=== PATIENT | male | born 1965 | race Caucasian/White ===

== ENCOUNTER 2019-02-05 14:13 | Emergency (ER) | payer OTHER ==
[2019-02-05] MEDS ORDERED: Acetaminophen/oxyCODONE 325-5 MG Tab PO ONE (14:14)
[2019-02-05] MEDS ORDERED: Sodium Chloride 0.9% 1,000 ML IV ONE (15:25)
[2019-02-05] MEDS ORDERED: HYDROmorphone 1 MG/ML Syringe IVPUSH ONE ×2 (15:25→16:01)
[2019-02-05] MEDS ORDERED: diphenhydrAMINE 50 MG/ML SDV IVPUSH ONE (16:11)
[2019-02-05] MEDS ORDERED: Acetaminophen/oxyCODONE 325-5 MG Tab ONE (16:59)
--- NOTE | 2019-02-05 17:03 | EDM.PDOC ---
Scribed by Anamaria Ashby 02/05/19 1533 for João House PA ED HPI GENERAL MEDICAL PROBLEM - General Chief Complaint: Abdominal Pain Stated Complaint: TORSO PAIN Time Seen by Provider: 02/05/19 15:19 Source of Information: Reports: Patient, RN, RN Notes Reviewed History Limitations: Reports: No Limitations - History of Present Illness INITIAL COMMENTS - FREE TEXT/NARRATIVE: This 53 yo male patient reports to the ED with increased abdominal and lower back pain. 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 The patient and his bobby came to [place] for a quick fishing trip prior to his surgery. The patient has noticed increased abdominal pain over the past 24 hours and is out of his pain medications. The patient reports he was given a script for hydrocodone, oxycodone and lorazepam, but these medications have not "touched" the pain. Onset: Today Duration: Constant Location: Reports: Abdomen Quality: Reports: Ache, Sharp Severity: Moderate Improves with: Reports: None Worsens with: Reports: None Context: Reports: Other Associated Symptoms: Reports: No Other Symptoms Right Lower Abdomen Pain Score (Numeric/FACES): 8 - Related Data Allergies Allergy/AdvReac Type Severity Reaction Status Date / Time No Known Allergies Allergy Verified 02/05/19 15:18 ED ROS GENERAL - Review of Systems Review Of Systems: ROS reveals no pertinent complaints other than HPI. ED EXAM, GI/ABD - Physical Exam Exam: See Below Exam Limited By: No Limitations General Appearance: Alert, WD/WN, Severe Distress Eyes: Bilateral: Normal Appearance, EOMI Ears: Normal External Exam, Normal Canal, Hearing Grossly Normal, Normal TMs Nose: Normal Inspection, Normal Mucosa, No Blood Throat/Mouth: Normal Inspection, Normal Lips, Normal Teeth, Normal Gums, Normal Oropharynx, Normal Voice, No Airway Compromise Head: Atraumatic, Normocephalic Neck: Normal Inspection, Supple, Non-Tender, Full Range of Motion Respiratory/Chest: No Respiratory Distress, Lungs Clear, Normal Breath Sounds, No Accessory Muscle Use, Chest Non-Tender Cardiovascular: Normal Peripheral Pulses, Regular Rate, Rhythm, No Edema, No Gallop, No JVD, No Murmur, No Rub GI/Abdominal Exam: Tender (diffuse abdominal tenderness) (Male) Exam: Deferred Rectal (Males) Exam: Deferred Back Exam: Normal Inspection, Full Range of Motion, NT Extremities: Normal Inspection, Normal Range of Motion, Non-Tender, Normal Capillary Refill, No Pedal Edema Neurological: Alert, Oriented, CN II-XII Intact, Normal Cognition, Normal Gait, Normal Reflexes, No Motor/Sensory Deficits Psychiatric: Normal Affect, Normal Mood Skin Exam: Warm, Dry, Intact, Normal Color, No Rash Lymphatic: No Adenopathy Course - Vital Signs Last Recorded V/S: Last Vital Signs Temp 97.8 C H 02/05/19 15:13 Pulse 106 H 02/05/19 15:13 Resp 18 02/05/19 15:13 BP 137/85 02/05/19 15:13 Pulse Ox 98 02/05/19 15:13 - Orders/Labs/Meds Meds: Medications Discontinued Medications Generic Name Dose Route Start Last Admin Trade Name Xavierq PRN Reason Stop Dose Admin Diphenhydramine HCl 50 mg 02/05/19 16:11 02/05/19 16:17 Benadryl IVPUSH 02/05/19 16:12 50 mg ONETIME ONE Administration Hydromorphone HCl 1 mg 02/05/19 15:25 02/05/19 15:39 Dilaudid IVPUSH 02/05/19 15:26 1 mg ONETIME ONE Administration Hydromorphone HCl 1 mg 02/05/19 16:01 02/05/19 16:05 Dilaudid IVPUSH 02/05/19 16:02 1 mg ONETIME ONE Administration Sodium Chloride 1,000 mls @ 999 mls/hr 02/05/19 15:25 02/05/19 15:40 Normal Saline IV 02/05/19 16:25 999 mls/hr .BOLUS ONE Administration - Re-Assessments/Exams Free Text/Narrative Re-Assessment/Exam: 02/05/19 16:03 The patient reports his pain continues to be severe (9/10). The patient's appearance demonstrates some improvement (the patient was not diaphoretic). Departure - Departure Time of Disposition: 16:56 Disposition: Home, Self-Care 01 Condition: Fair Clinical Impression: Abdominal pain Qualifiers: Abdominal location: generalized Qualified Code(s): R10.84 - Generalized abdominal pain - Discharge Information *PRESCRIPTION DRUG MONITORING PROGRAM REVIEWED*: Not Applicable *COPY OF PRESCRIPTION DRUG MONITORING REPORT IN PATIENT ETHAN: Not Applicable Instructions: Abdominal Pain, Adult, [id number] Forms: ED Department Discharge Care Plan Goals: The patient was advised of the examination results during the visit. The patient was given 2 doses of IV Dilaudid and IV Benadryl while in the ED with some pain relief. The patient was discharged with Oxycodone/Acetaminophen (5/325 ) #2 to take 1 by mouth every 6 hours as needed for pain. If the patient has any additional symptoms or concerns, the patient should either return to the emergency department or visit his primary care facility. I have read and agree with the documentation that has been completed regarding this visit. By signing this record, I attest that the documentation was completed in my physical presence and is an accurate record of the encounter.
== END 2019-02-05 17:08 | disposition home or self-care (01) ==
LOC: DL.ED 14:13
DX: R10.84 Generalized abdominal pain (principal)
CPT/HCPCS: 96361; 96374; 96375; 99283; A9270; J1170; J1200; J7030